=== PATIENT | female | born 1990 | race Caucasian/White ===

== ENCOUNTER 2016-09-08 09:35 | Inpatient (IN) | payer BC, OTHER ==
[2016-09-08] MEDS ORDERED: ePHEDrine 50 MG/ML SDV IVPUSH PRN (10:37)
[2016-09-08] MEDS ORDERED: Misoprostol 400 MCG (4 X 100 MCG TAB) RECTAL PRN (10:37)
[2016-09-08] MEDS ORDERED: Carboprost Tromethamine 250 MCG/1 ML Amp IM ONE (10:37)
[2016-09-08] MEDS ORDERED: Acetaminophen 325 MG Tab PO PRN (10:37)
[2016-09-08] MEDS ORDERED: diphenhydrAMINE 50 MG/ML SDV IVPUSH PRN (10:37)
[2016-09-08] MEDS ORDERED: Acetaminophen/oxyCODONE 325-5 MG Tab PO PRN (10:37)
[2016-09-08] MEDS ORDERED: Citric Acid/Sodium Citrate Solution 30 ML Cup PO ONE (10:37)
[2016-09-08] MEDS ORDERED: ceFAZolin 2 GM in Premix Bag 1 BAG IV ONE (10:37)
[2016-09-08] MEDS ORDERED: Methylergonovine 0.2 MG/1 ML Amp IM PRN (10:37)
[2016-09-08] MEDS ORDERED: Ondansetron 4 MG/2 ML SDV IV PRN (10:37)
[2016-09-08] MEDS ORDERED: Naloxone 2 MG/2 ML Syringe IVPUSH PRN (10:37)
[2016-09-08] MEDS ORDERED: Oxytocin/Normal Saline 30 UNIT/500 ML BAG IV SCH (10:45)
[2016-09-08] MEDS ORDERED: Oxytocin/Normal Saline 60 UNIT/1,000 ML BAG ONE (10:48)
[2016-09-08] MEDS: Lactated Ringers 1,000 ML IV SCH ×3 (11:00→22:43)
--- NOTE | 2016-09-08 11:23 | PCM.PREANE ---
Preanesthetic Assessment - Procedure Proposed Procedure: Repeat C/S. - Anesthesia/Transfusion/Family Hx Anesthesia History: Prior Anesthesia Without Reaction Family History of Anesthesia Reaction: No Transfusion History: No Prior Transfusion(s) Intubation History: Unknown - Review of Systems General: No Symptoms Pulmonary: No Symptoms Cardiovascular: No Symptoms Gastrointestinal: No symptoms Neurological: No Symptoms Other: Reports: None - Physical Assessment NPO Status Date: 09/08/16 NPO Status Time: 10:00 Pulse: 92 O2 Sat by Pulse Oximetry: 99 Respiratory Rate: 18 Blood Pressure: 126/80 Temperature: 97.6 F Height: 1.73 m Weight: 110.677 kg ASA Class: 2 Mental Status: Alert & Oriented x3 Dentition: Reports: Normal Dentition ROM/Head Extension: Full Lungs: Clear to auscultation, Normal respiratory effort Cardiovascular: Regular Rate, Regular Rhythm - Lab Values: Laboratory Last Values WBC 13.0 10^3/uL (5.0-10.0) H 09/08/16 11:05 RBC 3.81 10^6/uL (4.2-5.4) L 09/08/16 11:05 Hgb 11.0 g/dL (12.0-16.0) L 09/08/16 11:05 Hct 33.0 % (37.0-47.0) L 09/08/16 11:05 MCV 86.6 fL (80-100) 09/08/16 11:05 MCH 28.9 pg (27.0-34.0) 09/08/16 11:05 MCHC 33.3 g/dL (33.0-35.0) 09/08/16 11:05 Plt Count 185 10^3/uL (150-450) 09/08/16 11:05 - Allergies Allergies/Adverse Reactions: Allergies Allergy/AdvReac Type Severity Reaction Status Date / Time No Known Allergies Allergy Verified 09/08/16 11:05 - Blood Blood Available: No Product(s) Available: None - Acknowledgements Anesthesia Type Planned: Spinal Pt an Appropriate Candidate for the Planned Anesthesia: Yes Alternatives and Risks of Anesthesia Discussed w Pt/Guardian: Yes Pt/Guardian Understands and Agrees with Anesthesia Plan: Yes Additional Comments: R/B of spinal vs general anesthesia is discussed with patient and agreed to spinal anesthesia as plan A and General as plan B. Consent is signed. 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 OB/BYN History: Insertion of IUD - SUBSTANCE USE Smoking Status *Q: Never Smoker Second Hand Smoke Exposure: No Days Per Week of Alcohol Use: 1 Recreational Drug Use History: No - HOME MEDS Home Medications: Home Meds Vits #93/Iron Fum/FA [ Formula Tablet] 1 tab PO DAILY 09/08/16 [History] - CURRENT (IN HOUSE) MEDS Current Meds: Current Medications Acetaminophen (Tylenol) 650 mg PO Q6H PRN PRN Reason: mild pain or fever Diphenhydramine HCl (Benadryl) 25 mg IVPUSH Q6H PRN PRN Reason: Itching or Nausea Docusate Sodium (Colace) 100 mg PO Q12H PRN PRN Reason: Constipation Ephedrine Sulfate (Ephedrine Sulfate) 5 mg IVPUSH SEECOMMENT PRN PRN Reason: Other Ferrous Sulfate (Ferrous Sulfate) 325 mg PO BRK NEDA Oxytocin/Sodium Chloride (Pitocin In Ns 30 Unit/500 Ml) 30 unit in 500 mls @ 500 mls/hr IV TITRATE NEDA; 500 MUNITS/MIN PRN Reason: Protocol Lactated Ringer's (Ringers, Lactated) 1,000 mls @ 125 mls/hr IV ASDIRECTED NEDA Ibuprofen (Motrin) 800 mg PO Q8H PRN PRN Reason: mild pain or fever Ketorolac Tromethamine (Toradol) 15 mg IVPUSH Q6H NEDA Stop: 09/08/16 22:46 Methylergonovine Maleate (Methergine) 0.2 mg IM ONETIME PRN PRN Reason: Excessive Vaginal Bleeding Misoprostol (Cytotec) 800 mcg RECTAL ASDIRECTED PRN PRN Reason: Bleeding Naloxone HCl (Narcan) 0.1 mg IVPUSH SEECOMMENT PRN PRN Reason: Respiratory Depression Ondansetron HCl (Zofran) 4 mg IV Q4H PRN PRN Reason: Nausea/Vomiting Oxycodone/Acetaminophen (Percocet 325-5 Mg) 1 tab PO Q4H PRN PRN Reason: Pain (moderate 4-6) Oxycodone/Acetaminophen (Percocet 325-5 Mg) 2 tab PO Q4H PRN PRN Reason: Pain (moderate 4-6) Prenat Multivit/Calhoun/Iron/Folic Ac ( Plus Iron) 1 each PO DAILY NEDA Simethicone (Simethicone) 80 mg PO Q4H PRN PRN Reason: Gas Discontinued Medications Carboprost Tromethamine (Hemabate Ds) 250 mcg IM ONETIME ONE Stop: 09/08/16 10:38 Citric Acid/Sodium Citrate (Bicitra Solution) 30 ml PO ONETIME ONE Stop: 09/08/16 10:38 Cefazolin Sodium/Dextrose 2 gm (/ Premix) 50 mls @ 100 mls/hr IV ONETIME ONE Stop: 09/08/16 11:06 Oxytocin/Sodium Chloride (Pitocin In Ns 30 Unit/500 Ml) Confirm Administered Dose 60 unit in 1,000 mls @ as directed .ROUTE .STK-MED ONE Stop: 09/08/16 10:49
--- NOTE | 2016-09-08 11:39 | PN ---
DATE: 09/08/2016 SUBJECTIVE: The patient still feels her contractions. OBJECTIVE: heart tones in the 140s range. Tocometer still reveals contractions. Vaginal exam reveals to be changed from evaluation less than 2 hours prior. She is 1.5 cm, 60% effaced, -1 station, vertex suspected. Bag of water felt. PLAN: Due to contractions, cervical change and previous , requests repeat low transverse . We will proceed as previously recommended. Please see previous dictations. [facility] /[id number]
--- NOTE | 2016-09-08 13:31 | HP ---
PATIENT IDENTIFICATION: Raeann Williamson is a 25-year-old, G2, P1-0-0-1, intrauterine at 38 and 4/7th weeks, confirmed by 19 and 6/7th week- ultrasound, who presents with contractions/cramping/abdominal and back pain. HISTORY OF PRESENT ILLNESS: The patient states at approximately 6:00 p.m. evening prior to evaluation, had some cramping and back pains radiating to the front, seemed to wax and wane, but have been getting worse over time and severe enough now that she is breathing through them. She was initially seen in the clinic, evaluated there, and sent over the hospital for nonstress test and noted to have significant amount of contractions at that time. Because of her contractions and previous , request for repeat low transverse section, shared decision was made to proceed with repeat low transverse C- section. I did discuss with her and her the risks, benefits, alternatives, complications of . Verbal and written consent obtained. Questions were answered. Records were called for, reviewed as below and also supplemented by patient history. OB HISTORY: 05/04/2014, 40 and 3/7 weeks, delivered a female via primary low transverse due to intolerance, the patient becoming only 4 cm dilated. ANTEPARTUM LABS: ABO blood type A positive, negative antibody. Rubella immune. RPR nonreactive. Negative hepatitis B surface antigen. Negative hep C, HIV, GC, and Chlamydia. Wet prep within normal limits. One-hour GTT was 127 on 06/28/2016. GBS was negative on 08/16/2016. ALLERGIES: None. MEDICATIONS: vitamins. PAST MEDICAL/PAST SURGICAL HISTORY: Reviewed and remarkable for appendectomy in 2011, laparoscopically; lesion of the left upper back; skin lesion removed on 12/25/2011; wisdom teeth extraction done under local; as above; and EGD with closed biopsy on 01/12/2015, was negative study; and PyloriTek test negative. She used Depo in the past. History of chickenpox, body piercing, belly and ears. No transfusion. No IV drug use. She had an IUD removed on 10/07/2014, after insertion and 06/2014. FAMILY HISTORY: Severe peanut allergy in a brother, anemia in mother, asthma in a brother and paternal grandfather with several heart surgeries. No known disease in father or sister. Paternal grandmother had surgical complication, not really sure what happened. Negative family history of anesthesia problems, bleeding problems, clotting disorders, defects or multiple births. SOCIAL HISTORY: Lives in [place], currently , presents with her . 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 REVIEW OF SYSTEMS: Otherwise reviewed and felt to be noncontributory. OBJECTIVE: Vital Signs: Blood pressure was 116/68, heart rate 99, temperature 97.9. Appearance: Female, appears her stated age, acting appropriate for age, nontoxic in appearance. During second evaluation in the hospital, she is breathing through her contractions and grasps her abdomen and stops for a few seconds when she has contractions on the monitor, otherwise no apparent distress. Answering questions appropriately in between contractions. HEENT: Head is atraumatic. EOMs intact. PERRLA. No scleral icterus. No obvious otorhinorrhea. Mucous membranes moist. Neck: No obvious tenderness. Lungs: Clear to auscultation bilaterally. No increased work of breathing. Heart: S1, S2. Regular rate and rhythm. Abdomen: Gravid Martin's indeterminate, nontender, and nondistended. Bowel sounds positive. No organomegaly, pulsatile masses, or obvious hernias. No rebound, rigidity, or guarding. : Normal external female genitalia. In the clinic, she was 1 cm, 25% effaced -1 to -2 station, vertex suspected. Extremities: Trace pedal edema. Deep tendon reflexes 2-3/4 bilaterally in lower extremities. Psych: Mood and affect are congruent. Judgment and insight are intact. Skin: No cyanosis, clubbing, or jaundice. INVESTIGATIONS: NST was found to be reactive and reassuring. Tocometer reveals contractions as close to every 2-6 minutes apart. ASSESSMENT AND PLAN: 1. Intrauterine at 38 and 4/7th weeks, confirmed 19 and 6/7 week- ultrasound. 2. Contractions. 3. Previous , requests repeat low transverse section. 4. Group B Streptococcus negative. 5. History of palpitations. 6. G2, P1-0-0-1. PLAN: Due to the patient's contractions, previous , request repeat low transverse and suspected labor, we will proceed with repeat low transverse . I did discuss with her and her risks, benefits, alternatives, complications of including, but not limited to, infection, bleeding, damage to internal organs such as bowel, bladder, tubes, uterus, ovaries sometimes fetus rarely needing a blood transfusion or further surgery, and rarer maternal or . She understands and agrees and wishes to proceed. Verbal and written consent obtained. Questions were answered. We will proceed around the noon hour as baby appears well at this point in time. [facility] /[id number]
[2016-09-08] MEDS ORDERED: Ketorolac 30 MG/ML SDV IVPUSH ONE (13:48)
[2016-09-08] MEDS ORDERED: Ondansetron 4 MG/2 ML SDV IV ONE (16:40)
[2016-09-08] MEDS ORDERED: ePHEDrine 50 MG/ML SDV IV ONE (16:40)
[2016-09-08] MEDS ORDERED: Morphine PF 5 MG/10 ML SDV ONE (16:40)
[2016-09-08] MEDS: Ketorolac 30 MG/ML SDV IVPUSH SCH (18:26)
[2016-09-08] MEDS: Ferrous Sulfate 325 MG Tab PO SCH (18:33)
[2016-09-08] MEDS: Simethicone 80 MG Tab.Chew PO PRN (21:01)
[2016-09-08] MEDS: Acetaminophen/oxyCODONE 325-5 MG Tab PO PRN (21:02)
[2016-09-08] MEDS: Docusate Sodium 100 MG Cap PO PRN (21:02)
[2016-09-09] MEDS: Ketorolac 30 MG/ML SDV IVPUSH SCH ×2 (00:02→05:43)
[2016-09-09] MEDS: Acetaminophen/oxyCODONE 325-5 MG Tab PO PRN ×6 (01:26→23:36)
[2016-09-09] MEDS: Prenatal Multivitamin with Calcium/Folic Acid/Iron Tab PO SCH (08:32)
[2016-09-09] MEDS: Docusate Sodium 100 MG Cap PO PRN (08:32)
[2016-09-09] MEDS: Simethicone 80 MG Tab.Chew PO PRN (08:33)
[2016-09-09] MEDS: Ferrous Sulfate 325 MG Tab PO SCH (08:33)
--- NOTE | 2016-09-09 12:56 | PCM.POSTAN ---
POST ANESTHESIA ASSESSMENT - MENTAL STATUS Mental Status: alert, oriented - VITAL SIGNS Pulse Rate: 90 SaO2: 99 Resp Rate: 18 Blood Pressure: 122/79 Temperature: 97.4 F - RESPIRATORY Respiratory Status: respiratory rate WNL, airway patent, O2 saturation stable - CARDIOVASCULAR CV Status: pulse rate WNL, blood pressure stable - GASTROINTESTINAL GI Status: no symptoms - POST OP HYDRATION Hydration Status: adequate & stable (Patient is in chair ambulating without wny issues, Regained full function of her lower extremities. Please with her anesthetic plan of care.)
[2016-09-09] MEDS: Ibuprofen 800 MG Tab PO PRN ×2 (14:05→23:36)
[2016-09-10] MEDS: Acetaminophen/oxyCODONE 325-5 MG Tab PO PRN ×2 (03:59→11:35)
[2016-09-10] MEDS: Ferrous Sulfate 325 MG Tab PO SCH (07:18)
[2016-09-10] MEDS: Simethicone 80 MG Tab.Chew PO PRN (07:18)
[2016-09-10] MEDS: Ibuprofen 800 MG Tab PO PRN (07:18)
[2016-09-10] MEDS: Prenatal Multivitamin with Calcium/Folic Acid/Iron Tab PO SCH ×2 (07:18→08:44)
[2016-09-10] MEDS: Docusate Sodium 100 MG Cap PO PRN (07:18)
[2016-09-10 07:46] VITALS: BP 110/80
[2016-09-10] MEDS ORDERED: Oxytocin/Normal Saline 30 UNIT/500 ML BAG IV ONE (12:19)
--- NOTE | 2016-09-11 09:19 | PN ---
DATE: 09/09/2016 Postoperative day #1. SUBJECTIVE: The patient is tolerating p.o., ambulating, Escalona has just been removed, questionable flatus, but has some gurgling in her stomach. Pain is under control. OBJECTIVE: Vital Signs: Last set of vitals updated and listed in the chart; temperature is 97.2, heart rate 75, blood pressure 95/60, respiratory rate 16. Lungs: Clear to auscultation bilaterally. Heart: S1, S2. Regular rate and rhythm. Abdomen: Firm uterus -1 below umbilicus. Aquacel dressing has minimal tracing on it, otherwise appears dry and intact. NICK hose are on. ASSESSMENT AND PLAN: Postoperative day #1, status post repeat low transverse C- section. We will continue to follow her clinically and closely. CBC tomorrow. Possible discharge tomorrow versus Sunday. The patient understands and agrees with the above treatment plan. [facility] /[id number]
--- NOTE | 2016-09-11 09:52 | OR ---
DATE: 09/08/2016 PREOPERATIVE DIAGNOSES: 1. Intrauterine at 38-4/7th weeks, confirmed with 19-6/7th weeks' ultrasound. 2. Contractions with cervical change - labor upon admit. 3. Previous , requests repeat low transverse . 4. Group B Streptococcus negative. 5. History of palpitations during the . 6. 2, para 1-0-0-1. POSTOPERATIVE DIAGNOSES: 1. Intrauterine at 38-4/7th weeks, confirmed by 19-67th weeks' ultrasound - delivered. 2. Contractions with cervical change - labor upon admit. 3. Previous , requests repeat low transverse . 4. Group B Streptococcus negative. 5. History of palpitations during the . 6. 2, para 1-0-0-1. 7. Thick umbilical cord. PROCEDURE PERFORMED: NST followed by repeat low transverse . 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 ESTIMATED BLOOD LOSS: 600 mL. IV FLUIDS: 1500 mL. URINE OUTPUT: 100 mL clear yellow. START: 1218 hours. UTERINE INCISION: 1221 hours. DELIVERY: 1222 hours. 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 FINDINGS: Female, scores of 8 and 9, weight pending. DESCRIPTION OF PROCEDURE IN DETAIL: After proper consent was obtained, the patient was brought to the operating room where spinal anesthetic was administered. A Escalona was placed in preop under sterile conditions. Abdomen was prepped and draped in normal sterile fashion with the patient placed in the supine position with left lateral tilt. A skin incision was then made over lower abdomen in transverse Pfannenstiel-type fashion over previous scar. This was carried down to the fascia and scored in the midline. Subcutaneous tissue was raked laterally with Sullivan retractor, and fascial incision was extended in transverse fashion using curved Vincent's. Jess clamps x2 were used to grasp superior aspect of the fascia and rectus muscles were dissected from fascia using sharp and blunt technique. In a similar fashion, Jess clamps x2 were used to grasp the inferior portion of incision and rectus and pyramidalis muscles dissected from fascia using sharp and blunt technique. Rectus muscles were in the midline with blunt technique. Abdominal cavity was entered in blunt technique, and incision was extended superiorly and inferiorly using blunt technique. Guerrero O large retractor was then introduced and used. Vesicouterine peritoneum was identified and incised in transverse fashion using Metzenbaum scissors. Bladder flap was made digitally. A curvilinear incision was made in lower uterine segment at 1221 hours. Uterus was entered sharply. Uterine incision was then extended in transverse fashion using blunt technique. Bulging bag of water was then ruptured with Allis clamps. vertex was then delivered through the incision and abdomen followed by rest of the infant. Mouth and nares were suctioned. Cord was doubly clamped and cut and infant was brought over to team. There was noted to be a very thick umbilical cord. Then, approximately 10 mL cord blood was obtained for labs. Placenta was then delivered with gentle cord traction and fundal massage. Uterine cavity was then cleared of all blood clots and debris with lap sponge. Wagner clamps were then used to grasp the uterine incision. This was closed in a running locked fashion and tied at lateral margins with 1-0 Vicryl. First inspection of the uterine incision revealed hemostasis. Guerrero O retractor was then removed and paracolic gutters were then cleared of all blood clots and debris with lap sponge. Anterior cul-de-sac was then irrigated copiously and all blood clots and debris were removed. Second and final inspection of the uterine incision and anterior cul-de-sac revealed hemostasis. Rectus muscles were then reapproximated in midline with [id number] stitch using 1-0 Vicryl. Subfascial tissue was found to be hemostatic. Fascia was closed in a running fashion and tied at lateral margin with 0 looped PDS. Subcutaneous tissue was irrigated copiously. Hemostasis was reassured. Skin was reapproximated with medium dena. Sterile Aquacel dressing was applied. Uterus fundus was firm and massaged at conclusion of the case 1 below the umbilicus. No immediate complications were noted. Sponge, lap, and needle counts were correct. The patient received 2 g of Ancef preoperatively. Pitocin per protocol and will receive Toradol at the conclusion of case for pain control. Mother and infant are currently stable at the time of dictation. [facility] /[id number] [facility]
--- NOTE | 2016-09-11 09:58 | OBOUT ---
DATE: 09/08/2016 DATE AND TIME OF NST: Date: 09/08/2016. Time: 10:10 to 10:30. REASON FOR NST: 1. Intrauterine at 38-4/7th weeks, confirmed with 19-6/7th-week ultrasound. 2. Contractions. 3. Abdominal pain. 4. Previous , requests repeat low transverse . 5. GBS negative. 6. History of palpitation. 7. 2, para 1-0-0-1. NST INTERPRETATION: During this time period, tone baseline is approximately 140, and there are at least two 15 x 15 beat per minute accelerations, making this strip reactive. It is also noted to be reassuring. Tocometer reveals potential of 4 contractions felt by patient. ASSESSMENT: 1. NST-reactive and reassuring. 2. Tocometer with contractions. PLAN: Please see admit history and physical for further details. As patient is having contractions, breathing through some of them, previous , requests for repeat low transverse , it is recommended that we proceed with repeat low transverse . I did discuss with her and her risks, benefits, alternatives, and complications of C-sections including, but not limited to, infection, bleeding, damage to internal organs such as bowel, bladder, tubes, uterus, ovaries, sometimes fetus rarely needing blood transfusion or further surgery, and rarer maternal or . She understands and agrees and wishes to proceed. Verbal and written consent obtained. Questions were answered. We will proceed around the noon hour with her repeat low transverse . [facility] /[id number]
--- NOTE | 2016-09-11 11:19 | DISCH ---
ADMIT DIAGNOSES: 1. Intrauterine at 38 and 4/7th weeks, confirmed by 19 and 6/7th weeks ultrasound. 2. Contractions with cervical change - labor. 3. Previous section, requests repeat low-transverse section. 4. Group B Streptococcus negative. 5. History of palpitations during the . 6. 2, para 1-0-0-1. DISCHARGE DIAGNOSES: 1. Intrauterine at 38 and 4/7th weeks, confirmed by 19 and 6/7th weeks ultrasound - delivered. 2. Contractions with cervical change - labor. 3. Previous section, requests repeat low-transverse section. 4. Group B Streptococcus negative. 5. History of palpitations during the . 6. 2, para 1-0-0-1. 7. Thick umbilical cord. PROCEDURE PERFORMED: NST followed by repeat low-transverse per Dr. Rosa. HISTORY OF PRESENT ILLNESS: Please see H and P. SUMMARY OF HOSPITAL COURSE: The patient was admitted on above date with the above diagnoses, was followed for contractions, had cervical change. She was breathing through some of her contractions and because she had a previous C- section, requests repeat low transverse , this was done under a spinal anesthetic with an EBL of 600 mL, yielding a female with scores of 8 and 9, weighing 7 pounds 12 ounces. Please see operative note for further details. Thick cord was noted. Postop day #1, please see progress note. Postop day #2, date of discharge, the patient was tolerating p.o., ambulating, urinating, passing flatus, requesting discharge. PHYSICAL EXAMINATION: Vital Signs: Last set of vitals; temperature 97.3, heart rate 79, blood pressure 110/80, respiratory rate 16. Lungs: Clear to auscultation bilaterally. Heart: S1 and S2. Regular rate and rhythm. Abdomen: Firm uterus at approximately -1 below umbilicus. Aquacel dressing has minimal shadowing. Nothing increased over serial exams. Extremities: Trace pedal edema. No calf pain. LABORATORY DATA: Discharge labs reveal white cell count 9.6, hemoglobin 10.9, and platelets 202,000. CONDITION ON DISCHARGE COMPARED TO CONDITION ON ADMISSION: Improved. DISCHARGE INSTRUCTIONS: 1. Diet as tolerated. 2. Activity, no lifting more than 20 pounds. No sit-ups, straining, and pelvic rest for next 6 weeks with immediate return to fertility discussed with the patient. 3. Reasons to return or go to the emergency room were discussed with the patient in detail including, but not limited to, temperature greater than 100.4, foul-smelling discharge, red, hot, tender breast, increased vaginal bleeding or increasing pain, drainage, or redness around the incision. DISCHARGE MEDICATIONS: 1. [id number] ibuprofen for pain. 2. Percocet 5/325, 1-2 q.6 hours p.r.n., #30, no refills. Discussed the use of this medication, adverse and wanted effects, as well precautions with driving. FOLLOW UP: Tomorrow on 09/11/2016, with her as well as with herself for staple removal. I did discuss in the interim, reasons to return or go to the emergency room with her as well as with herself. The patient understands and agrees with above treatment plan. [facility] /[id number]
== END 2016-09-10 12:20 | disposition home or self-care (01) | DRG 540 ==
LOC: DL.OBCHECK 09:35 → DL.OB 10:36 → OBSVTOIN 12:22 → DL.OB 12:22 → EDSTATUS 09-12 08:00
PROVIDERS: ADMIT Family Medicine; ATTEND Family Medicine
PROC: 10D00Z1 Extraction of Products of Conception, Low, Open Approach (ICD-10-PCS; principal; 2016-09-08)
PROC: 4A1HXFZ Monitoring of Products of Conception, Cardiac Rhythm, External Approach (ICD-10-PCS; 2016-09-08)
PROC: 00HU33Z Insertion of Infusion Device into Spinal Canal, Percutaneous Approach (ICD-10-PCS; 2016-09-08)
DX: O34.211 Maternal care for low transverse scar from previous cesarean delivery (principal); O75.82 Onset (spontaneous) of labor after 37 completed weeks of gestation but before 39 completed weeks gestation, with delivery by (planned) cesarean section; O69.89X0 Labor and delivery complicated by other cord complications, not applicable or unspecified; O26.899 Other specified pregnancy related conditions, unspecified trimester; R00.2 Palpitations; Z3A.38 38 weeks gestation of pregnancy; Z37.0 Single live birth
CPT/HCPCS: 36415; 85027; 86850; 86900; 86901; A9270-GY; J0690; J1885; J2274; J2405; J2590; J7120

== ENCOUNTER 2016-11-09 08:29 | Day surgery (SDC) | payer BC ==
[2016-11-09] MEDS ORDERED: Neostigmine Methylsulfate 10 MG/10 ML MDV IV ONE (08:30)
[2016-11-09] MEDS ORDERED: Glycopyrrolate 0.2 MG/ML 2 ML SDV IV ONE (08:30)
[2016-11-09] MEDS ORDERED: Rocuronium 50 MG/5 ML Vial IV ONE (08:30)
[2016-11-09] MEDS ORDERED: fentaNYL 100 MCG/2 ML SDV ONE ×2 (08:30→09:24)
[2016-11-09] MEDS ORDERED: Ondansetron 4 MG/2 ML SDV IV ONE (08:30)
[2016-11-09] MEDS ORDERED: Propofol 200 MG/20 ML SDV IV ONE (08:30)
[2016-11-09] MEDS ORDERED: Meperidine PF 50 MG/ML Syringe IV ONE (08:30)
[2016-11-09] MEDS ORDERED: Midazolam 1 MG/ML 2 ML SDV IV ONE (08:30)
[2016-11-09] MEDS: Lactated Ringers 1,000 ML IV SCH ×2 (09:10→11:26)
[2016-11-09] MEDS ORDERED: Midazolam 1 MG/ML 2 ML SDV ONE (09:21)
[2016-11-09] MEDS ORDERED: Rocuronium 50 MG/5 ML Vial ONE (09:22)
[2016-11-09] MEDS ORDERED: Meperidine PF 50 MG/ML Syringe ONE (09:22)
[2016-11-09] MEDS ORDERED: Propofol 200 MG/20 ML SDV ONE (09:22)
[2016-11-09] MEDS ORDERED: Neostigmine Methylsulfate 10 MG/10 ML MDV ONE (09:22)
[2016-11-09] MEDS ORDERED: Lidocaine 2% 20 ML MDV ONE (09:22)
[2016-11-09] MEDS ORDERED: Ondansetron 4 MG/2 ML SDV ONE (09:22)
[2016-11-09] MEDS ORDERED: ceFAZolin 1 GM in Sodium Chloride 0.9% 50 ML IV ONE (09:30)
--- NOTE | 2016-11-09 09:38 | PCM.PREANE ---
Preanesthetic Assessment - Procedure Proposed Procedure: Lap. Cholecystectomy - Anesthesia/Transfusion/Family Hx Anesthesia History: Prior Anesthesia Without Reaction Family History of Anesthesia Reaction: No Transfusion History: No Prior Transfusion(s) Intubation History: Unknown - Review of Systems General: No Symptoms Pulmonary: No Symptoms Cardiovascular: No Symptoms Gastrointestinal: No Symptoms Neurological: No Symptoms Other: Reports: None - Physical Assessment NPO Status Date: 11/08/16 NPO Status Time: 20:00 O2 Sat by Pulse Oximetry: 96 Respiratory Rate: 16 Vital Signs: Last Vital Signs Temp 97.5 F 11/09/16 08:41 Pulse 64 11/09/16 08:41 Resp 16 11/09/16 08:41 BP 112/62 11/09/16 08:41 Pulse Ox 96 11/09/16 08:41 Height: 1.73 m Weight: 97.069 kg ASA Class: 1 Mental Status: Alert & Oriented x3 Airway Class: Mallampati = 2 Dentition: Reports: Normal Dentition Thyro-Mental Finger Breadths: 3 Mouth Opening Finger Breadths: 3 ROM/Head Extension: Full Lungs: Clear to Auscultation, Normal Respiratory Effort Cardiovascular: Regular Rate, Regular Rhythm - Lab Values: Laboratory Last Values Urine HCG, Qual Negative 11/09/16 08:52 - Allergies Allergies/Adverse Reactions: Allergies Allergy/AdvReac Type Severity Reaction Status Date / Time No Known Allergies Allergy Verified 11/09/16 09:27 - Blood Blood Available: No Product(s) Available: None - Anesthesia Plan Pre-Op Medication Ordered: None - Acknowledgements Anesthesia Type Planned: General Anesthesia Pt an Appropriate Candidate for the Planned Anesthesia: Yes Alternatives and Risks of Anesthesia Discussed w Pt/Guardian: Yes Pt/Guardian Understands and Agrees with Anesthesia Plan: Yes Additional Comments: R/B of general anesthesia is discussed with patient and consent is signed. PreAnesthesia Questionnaire - Past Health History Medical/Surgical History: Denies Medical/Surgical History HEENT History: Reports: None Cardiovascular History: Reports: Other (See Below) Other Cardiovascular History: Palpitations Respiratory History: Reports: None Gastrointestinal History: Reports: GERD Genitourinary History: Reports: None ELECTRICIAN SOUND History: Other OB/BYN History: Insertion of IUD Musculoskeletal History: Reports: None Neurological History: Reports: None Psychiatric History: Reports: None Endocrine/Metabolic History: Reports: None Hematologic History: Reports: None Immunologic History: Reports: None Oncologic (Cancer) History: Reports: None Dermatologic History: Reports: None - Infectious Disease History Infectious Disease History: Reports: Chicken Pox - Past Surgical History Head Surgeries/Procedures: Reports: None HEENT Surgical History: Reports: None GI Surgical History: Reports: Appendectomy, EGD Female Surgical History: Reports: Section Musculoskeletal Surgical History: Reports: None Dermatological Surgical History: Reports: Other (See Below) - SUBSTANCE USE Smoking Status *Q: Never Smoker Second Hand Smoke Exposure: No Days Per Week of Alcohol Use: 1 Recreational Drug Use History: No - HOME MEDS Home Medications: Home Meds Vits #93/Iron Fum/FA [ Formula Tablet] 1 tab PO DAILY 09/08/16 [History] Norethindrone [Norethindrone] 0.35 mg PO BEDTIME 11/07/16 [History] - CURRENT (IN HOUSE) MEDS Current Meds: Current Medications Lactated Ringer's (Ringers, Lactated) 1,000 mls @ 100 mls/hr IV ASDIRECTED NEDA Last Admin: 11/09/16 09:10 Dose: 100 mls/hr Discontinued Medications Fentanyl (Sublimaze) Confirm Administered Dose 200 mcg .ROUTE .STK-MED ONE Stop: 11/09/16 09:25 Lidocaine HCl (Xylocaine 2%) Confirm Administered Dose 20 ml .ROUTE .STK-MED ONE Stop: 11/09/16 09:23 Meperidine HCl (Demerol) Confirm Administered Dose 50 mg .ROUTE .STK-MED ONE Stop: 11/09/16 09:23 Midazolam HCl (Versed 1 Mg/Ml) Confirm Administered Dose 2 mg .ROUTE .STK-MED ONE Stop: 11/09/16 09:22 Neostigmine Methylsulfate (Neostigmine Methylsulfate) Confirm Administered Dose 10 mg .ROUTE .STK-MED ONE Stop: 11/09/16 09:23 Ondansetron HCl (Zofran) Confirm Administered Dose 4 mg .ROUTE .STK-MED ONE Stop: 11/09/16 09:23 Propofol (Diprivan 20 Ml) Confirm Administered Dose 200 mg .ROUTE .STK-MED ONE Stop: 11/09/16 09:23 Rocuronium [place] (Zemuron) Confirm Administered Dose 50 mg .ROUTE .STK-MED ONE Stop: 11/09/16 09:23
[2016-11-09] MEDS ORDERED: Sodium Chloride 0.9% 10 ML Syringe FLUSH PRN (11:12)
--- NOTE | 2016-11-09 11:47 | PCM.POSTAN ---
POST ANESTHESIA ASSESSMENT - MENTAL STATUS Mental Status: Alert, Oriented - VITAL SIGNS Pulse Rate: 68 SaO2: 99 Resp Rate: 14 Blood Pressure: 123/68 Temperature: 97.6 F - RESPIRATORY Respiratory Status: Respiratory Rate WNL, Airway Patent, O2 Saturation Stable - CARDIOVASCULAR CV Status: Pulse Rate WNL, Blood Pressure Stable - GASTROINTESTINAL GI Status: No Symptoms - PAIN Pain Score: 2 - POST OP HYDRATION Hydration Status: Adequate & Stable - OBSERVATIONS Free Text/Narrative:: Tolerated procedure and fluid well. Pain is under control and scored at 2. Patient discharged to observation.
--- NOTE | 2016-11-09 11:50 | OR ---
DATE: 11/09/2016 ATTENDING SURGEON: Ricardo Leos MD [employer] SURGEON: Tex Gerardo, PGY-III PREOPERATIVE DIAGNOSES: 1. Symptomatic cholelithiasis. 2. Abdominal mole. POSTOPERATIVE DIAGNOSES: 1. Symptomatic cholelithiasis. 2. Abdominal mole. PROCEDURES: 1. Laparoscopic cholecystectomy. 2. Mole removal of the abdomen. SPECIMENS: 1. Gallbladder. 2. Abdominal mole, stitch mancilla at 9 o'clock position. ESTIMATED BLOOD LOSS: 10 ANESTHESIA: General. COMPLICATIONS: None. INTRAOPERATIVE FINDINGS: Normal-appearing gallbladder. No intraabdominal complications. There was perforation of the gallbladder with spillage of bile and stones. No other complications. Normal-appearing liver, stomach, and colon. No intraabdominal adhesions noted. INDICATION FOR PROCEDURE: Raeann Williamson is a 26-year-old female, who is recently , who presented with symptomatic cholelithiasis and an abdominal mole. She got worked up with ultrasound showing gallstones. She had signs and symptoms consistent with symptomatic cholelithiasis following her . Therefore, laparoscopic cholecystectomy was recommended. Her mole on her abdomen has been changing in color and has grown somewhat and become darker with an additional color spots in the middle, therefore, recommended removal as well. Risks and benefits of both procedures were discussed by myself as well as Dr. Leos, and the patient wished to proceed with surgery at this time. DETAILS OF PROCEDURE: The patient was brought to the operating room, placed supine on operating room table. IV antibiotics were given. She was intubated and sedated without issue. SCDs were placed. She was prepped and draped in standard sterile fashion. A procedural time-out was performed, and all were in agreement. A right upper quadrant 5 mm incision was made and a 5 mm trocar was placed following insufflation with a Veress needle. There were no intraabdominal adhesions noted. Therefore, we turned our attention back to the infraumbilical region and placed a 12 mm trocar port after skin incision. The camera was then moved to the umbilical and the two additional trocars were placed, a 12 mm in subxiphoid position as well as a 5 mm on the additional right upper quadrant position. The gallbladder was retracted cephalad. The peritoneum was scored and brought laterally to the liver bed edges. The cystic duct and cystic artery were isolated, doubly clipped proximally and distally, and transected between the clips. The gallbladder was removed from the liver bed using electrocautery. During this, the gallbladder was perforated and there was spillage of multiple small stones and bile. The gallbladder was removed from the liver bed. There was adequate hemostasis. The liver bed as well as Morison's pouch and up over the liver were all irrigated thoroughly and many stones removed. The gallbladder was placed in an EndoCatch bag and removed through the umbilical port. The remaining trocars were removed under direct visualization. There was no obvious bleeding. The fascia was closed with an 0 Vicryl on a UR needle. The skin was all closed with 4-0 Monocryl. At the end, an elliptical incision around the abdominal wall was placed and this was removed. Minimal bleeding noted. Stitch was used to rahel the 9 o'clock position. The skin was then closed with 4-0 Monocryl. Steri-Strips and sterile dressings were placed over top. The patient was brought out of anesthesia without issue and transferred to PACU in stable condition. There were no complications. Dr. Ricardo Leos was present, scrubbed, and directed all portions of this procedure. [facility] /[id number] MTDD
[2016-11-09] MEDS: Acetaminophen 325 MG Tab PO PRN ×2 (12:03→21:29)
--- NOTE | 2016-11-10 08:25 | DISCH ---
ADMISSION DIAGNOSIS: Symptomatic cholelithiasis. DISCHARGE DIAGNOSIS: Symptomatic cholelithiasis. OPERATIVE PROCEDURE: Laparoscopic cholecystectomy. DIET ON DISCHARGE: Regular diet. ACTIVITY AT DISCHARGE: As tolerated. No lifting over 20 pounds for 4 weeks. No strenuous activities. Do not drive until all medications are out of her system. No tub bathing or swimming until wounds are completely healed. She may start shower in the morning. She is to keep the operative sites clean, dry, and intact. Notify provider if any fever, increased pain, swelling, redness, or drainage. DISCHARGE EXAMINATION: Vital Signs: Stable. She has been somewhat borderline hypotensive; however, she is asymptomatic at this time and does run low per history. General: Alert and oriented x3. No acute distress. Sleeping upon entering the room. Cardiac: Regular rate and rhythm. Pulmonary: No tachypnea or cyanosis noted. No increased working of breath. Abdomen: Soft, nontender, and nondistended. Incisions are with minimal shadowing on the dressing. There is no discrete drainage from them. Extremities: No pedal edema noted. DETAILS OF HOSPITAL COURSE: Raeann Williamson is a 26-year-old female who presented with signs and symptoms of symptomatic cholelithiasis. She was taken for laparoscopic cholecystectomy without issue. Postoperatively, her pain was well controlled on p.o. pain medications. She is up ambulating in the room and urinating without any difficulties. She has been tolerating a diet without issues. She is discharged home on postoperative day #1. Follow up in 5 days for suture removal on her back at postoperative visit with Dr. Ajay Gerardo. [facility] /[id number]
[2016-11-10 09:56] VITALS: BP 100/60
== END 2016-11-10 08:55 | disposition home or self-care (01) ==
LOC: DL.SDS 08:29 → EDSTATUS 10:00 → DL.MS 14:22 → DL.SDS 11-10 08:55
PROVIDERS: ATTEND Surgery
DX: K80.10 Calculus of gallbladder with chronic cholecystitis without obstruction (principal); D22.5 Melanocytic nevi of trunk
CPT/HCPCS: 11400; 47562; 81025; A4216; A9270; J0690; J2175; J2250; J2405; J2704; J2710; J3010; J7050; J7120; J3490